=== PATIENT | male | born 1945 | race Caucasian/White ===

== ENCOUNTER 2021-02-06 16:03 | Observation (INO) ==
[2021-02-06] MEDS ORDERED: Naloxone 0.4 MG/ML INJ IVP PRN (20:52)
[2021-02-06] MEDS ORDERED: Acetaminophen 325 MG TABLET PO PRN (20:52)
[2021-02-06] MEDS ORDERED: Ondansetron 4 MG/2 ML VIAL IVP PRN (20:52)
[2021-02-06] MEDS ORDERED: Melatonin 3 MG TABLET PO PRN (20:52)
[2021-02-06] MEDS ORDERED: Perflutren Lipid Microsphere 1.3 ML in 0.9 % Sodium Chloride 8.7 ML IVP PRN (21:11)
[2021-02-06] MEDS: Valsartan 80 MG TABLET PO SCH (21:35)
[2021-02-07] MEDS: *HR* Heparin 5,000 UNIT/ML VIAL SQ SCH ×2 (05:56→17:38)
[2021-02-07 05:58] LABS: Eosinophils % 1.6 %; Hematocrit 35.8 % (37.5-50.1); Hemoglobin 11.5 g/dL (12.9-16.9); Immature Granulocytes % 0.3 % (0-4); Lymphocytes % 16.6 %; Mean Corpuscular HGB Conc 32.1 g/dL (31.6-35.5); Mean Corpuscular Hemoglobin 31.3 pg (28.0-33.3); Mean Corpuscular Volume 97.3 fL (83.0-100.0); Monocytes % 7.6 %; Platelet Count 174 K/mcL (140-400); Red Blood Count 3.68 M/mcL (4.19-5.50); Red Cell Distribution Width 12.7 % (11.5-14.5); Segmented Neutrophils % 73.2 %; White Blood Count 7.6 K/mcL (4.3-11.1)
[2021-02-07 05:59] LABS: Basophils # 0.1 K/mcL (0.0-0.2); Basophils % 0.7 %; Eosinophils # 0.1 K/mcL (0.0-0.6); Lymphocytes # 1.3 K/mcL (0.6-4.6); Monocytes # 0.6 K/mcL (0.0-1.3); Neutrophils # 5.6 K/mcL (1.6-8.9)
[2021-02-07 06:15] LABS: BUN/Creatinine Ratio 27 (6-26); Blood Urea Nitrogen 27 mg/dL (8-23); Calcium 9.2 mg/dL (8.6-10.3); Carbon Dioxide 25 mEq/L (23-29); Chloride 109 mEq/L (98-107); Glucose 136 mg/dL (70-105); Osmolality,Calculated 295 (280-300); Potassium 4.7 mEq/L (3.5-5.1); Sodium 139 mEq/L (136-145); eGFR For African Americans > 60 (> 60); eGFR For Non-African Americans > 60 (> 60)
[2021-02-07] MEDS: amLODIPine 5 MG TABLET PO SCH (08:21)
[2021-02-07] MEDS: Spironolactone 25 MG TABLET PO SCH (08:21)
[2021-02-07] MEDS: Valsartan 80 MG TABLET PO SCH ×2 (08:21→20:30)
[2021-02-07] MEDS: Aspirin 81 MG TAB.CHEW PO SCH (08:21)
[2021-02-07] MEDS ORDERED: Isosorbide MONOnitrate (24 HR) 30 MG TAB.ER.24H PO SCH (21:00)
[2021-02-08] MEDS: *HR* Heparin 5,000 UNIT/ML VIAL SQ SCH (05:52)
[2021-02-08] MEDS: amLODIPine 5 MG TABLET PO SCH (07:30)
[2021-02-08] MEDS: Valsartan 80 MG TABLET PO SCH (07:30)
[2021-02-08] MEDS: Aspirin 81 MG TAB.CHEW PO SCH (07:30)
[2021-02-08] MEDS: Spironolactone 25 MG TABLET PO SCH (07:30)
[2021-02-08 11:13] VITALS: BP 122/62
== END 2021-02-08 13:32 | disposition home or self-care (01) ==
LOC: 3BNU → SUATTDRO 19:38
PROVIDERS: ADMIT Family Medicine; ATTEND Registered Nurse